=== PATIENT | female | born 1990 | race Native Hawaiian/Other Pacific Islander ===

== ENCOUNTER 2018-01-13 10:44 | Emergency (ER) | payer OTHER ==
[~2018-01-13] VITALS: Ht 160 cm; Wt 68.0 kg
[~2018-01-13 10:44] MED LIST: GUMMI BEAR OR; PRENATAL1 T10 PO; ZOFRAN8 MG OR; [UNRECOGNIZED DRUG - OTHER] OR
[2018-01-13 12:19] LABS: PLATELET COUNT 178 K/uL (152-353)
[2018-01-13 12:21] LABS: POTASSIUM 4.1 mmol/L (3.6-5.2)
== END 2018-01-13 12:25 | disposition home or self-care (01) ==
LOC: ED 10:44
DX: R10.84 Generalized abdominal pain (principal); R11.2 Nausea with vomiting, unspecified; A08.39 Other viral enteritis
CPT/HCPCS: 36415; 80048; 81000; 81025; 85027; 99283

== ENCOUNTER 2019-01-05 18:14 | Emergency (ER) | payer OTHER ==
[~2019-01-05] VITALS: Ht 162.6 cm; Wt 64.4 kg
[2019-01-05 21:27] LABS: PLATELET COUNT 211 K/uL (152-353)
[2019-01-05 21:32] LABS: POTASSIUM 3.8 mmol/L (3.6-5.2)
[2019-01-05 23:00] VITALS: BP 110/60; TEMP 98.2
== END 2019-01-05 23:00 | disposition home or self-care (01) ==
LOC: ED 18:14
PROVIDERS: Emergency Medicine
DX: O21.0 Mild hyperemesis gravidarum (principal); Z3A.01 Less than 8 weeks gestation of pregnancy
CPT/HCPCS: 36415; 80053; 81000; 84702; 85027; 96360; 99283

== ENCOUNTER 2019-10-28 09:43 | Emergency (ER) | payer OTHER ==
[~2019-10-28] VITALS: Ht 162.6 cm; Wt 65.8 kg
[2019-10-28 10:21] LABS: PLATELET COUNT 177 K/uL (152-353)
[2019-10-28 12:43] VITALS: BP 110/65; TEMP 98.4
== END 2019-10-28 12:47 | disposition home or self-care (01) ==
LOC: ED 09:43
PROVIDERS: Emergency Medicine
DX: R11.2 Nausea with vomiting, unspecified (principal); R42 Dizziness and giddiness
CPT/HCPCS: 36415; 80053; 81000; 81025; 85027; 96360; 96375; 99284; J2405